=== PATIENT | female | born 1965 | race Asian ===

== ENCOUNTER 2017-01-21 09:59 | Outpatient (CLI) | payer OTHER ==
--- NOTE | 2017-01-22 18:45 | Mammography Report ---
DIGITAL SCREENING MAMMOGRAM: 01/21/2017 CLINICAL INDICATION: A 51-year-old nulliparous patient with history of benign cyst aspiration for sc reening. COMPARISON: 08/2014, 10/2011, 10/2007, 01/2007. TECHNIQUE: Routine CC and MLO projections were obtained of the breasts. FINDINGS: The breasts again demonstrate heterogeneous dense fibroglandular parenchyma bilaterally. There is a shifting pattern of circumscribed nodules bilaterally, compatible with waxing and waning c ysts. Coarse and punctate, typically benign calcifications are present. No suspicious masses, clust ered microcalcifications, or regions of architectural distortion are identified. IMPRESSION: BENIGN FINDINGS. RECOMMENDATION: Routine annual screening unless otherwise clinically indicated. BI-RADS category 2, benign findings. STANDARD QUALIFYING STATEMENTS 1. This examination was reviewed with the aid of Computer-Aided Detection (CAD). 2. A negative or benign imaging report should not delay biopsy if clinically suspicious findings are present. Consider surgical consultation if warranted. More than 5% of cancers are not identified by i maging. 3. Dense breasts may obscure an underlying neoplasm. JOB #: [id number] EXT JOB #:[id number]
== END 2017-01-21 10:00 | disposition home or self-care (01) ==
LOC: DI.N 09:59
PROVIDERS: ATTEND Physician Assistant Medical
DX: Z12.31 Encounter for screening mammogram for malignant neoplasm of breast (principal)
CPT/HCPCS: 77067

== ENCOUNTER 2017-02-11 10:37 | Outpatient (CLI) | payer OTHER ==
[2017-02-11 19:23] LABS: BASOPHILS % (AUTO) 0.8 %; EOSINOPHILS % (AUTO) 0.8 %; HCT - HEMATOCRIT 41.4 % (37.0-47.0); HGB - HEMOGLOBIN 14.1 g/dL (12.0-16.0); LYMPHOCYTES # (AUTO) 1.8 10^3/uL (1.5-3.5); LYMPHOCYTES % (AUTO) 33.6 %; MEAN CORPUSCULAR HEMOGLOBIN 30.3 pg (27.0-31.0); MEAN CORPUSCULAR VOLUME 89.3 fL (81.0-99.0); MEAN PLATELET VOLUME 7.6 fL (7.9-10.8); MONOCYTES # (AUTO) 0.3 10^3/uL (0.0-1.0); NEUTROPHILS # (AUTO) 3.3 10^3/uL (1.5-6.6); NEUTROPHILS % (AUTO) 59.8 %; NUCLEATED RED BLOOD CELLS AUTO 0.1 /100WBC; RED BLOOD COUNT 4.64 10^6/uL (4.20-5.40); RED CELL DISTRIBUTION WIDTH 13.3 % (12.0-15.0); UNCORRECTED WHITE BLOOD COUNT 5.4 x10^3/uL; WHITE BLOOD COUNT 5.4 x10^3/uL (4.8-10.8)
[2017-02-11 19:29] LABS: ALBUMIN/GLOBULIN RATIO 1.3 (1.0-2.2); BILIRUBIN,TOTAL 0.5 mg/dL (0.2-1.0); BUN - BLOOD UREA NITROGEN 11 mg/dL (6-20); CALCIUM 9.7 mg/dL (8.5-10.3); CARBON DIOXIDE - CO2 28 mmol/L (21-32); CHLORIDE 103 mmol/L (101-111); CHOL/HDL RATIO 3.2 (<4.4); CHOLESTEROL 244 mg/dL; CREATININE 0.6 mg/dL (0.4-1.0); GFR - MDRD 105 (>89); GLUCOSE 98 mg/dL (70-100); HDL CHOLESTEROL 76 mg/dL; LDL/HDL RATIO 1.9 (<4.4); POTASSIUM 3.6 mmol/L (3.5-5.0); SODIUM 140 mmol/L (135-145); TOTAL PROTEIN 8.7 g/dL (6.7-8.2); TRIGLYCERIDES 126 mg/dL; VLDL CHOLESTEROL 25 mg/dL
== END 2017-02-11 10:38 | disposition home or self-care (01) ==
LOC: LAB.WCP 10:37
PROVIDERS: ATTEND Physician Assistant Medical
DX: Z00.00 Encounter for general adult medical examination without abnormal findings (principal)
CPT/HCPCS: 36415; 80053; 80061; 84443; 85025

== ENCOUNTER → 2018-03-24 | Outpatient (CLI) | payer OTHER ==
[2018-03-24 14:19] LABS: EOSINOPHILS # (AUTO) 0.1 10^3/uL (0.0-0.7); EOSINOPHILS % (AUTO) 1.5 %; HGB - HEMOGLOBIN 13.9 g/dL (12.0-16.0); LYMPHOCYTES # (AUTO) 1.8 10^3/uL (1.5-3.5); LYMPHOCYTES % (AUTO) 40.7 %; MEAN CORPUSCULAR HEMOGLOBIN 30.1 pg (27.0-31.0); MEAN CORPUSCULAR VOLUME 88.5 fL (81.0-99.0); MEAN PLATELET VOLUME 7.4 fL (7.9-10.8); MONOCYTES # (AUTO) 0.3 10^3/uL (0.0-1.0); NEUTROPHILS # (AUTO) 2.2 10^3/uL (1.5-6.6); NEUTROPHILS % (AUTO) 50.8 %; PLT - PLATELET COUNT 375 10^3/uL (130-450); RED CELL DISTRIBUTION WIDTH 13.2 % (12.0-15.0); WHITE BLOOD COUNT 4.3 x10^3/uL (4.8-10.8)
[2018-03-24 14:40] LABS: ALBUMIN/GLOBULIN RATIO 1.3 (1.0-2.2); ALKALINE PHOSPHATASE 84 IU/L (42-121); ALT ALANINE AMINOTRANSFERASE 46 IU/L (10-60); AST ASPARTATE AMINOTRANSFERASE 37 IU/L (10-42); BILIRUBIN,TOTAL 0.8 mg/dL (0.2-1.0); BUN - BLOOD UREA NITROGEN 11 mg/dL (6-20); CALCIUM 9.4 mg/dL (8.5-10.3); CARBON DIOXIDE - CO2 27 mmol/L (21-32); CHLORIDE 99 mmol/L (101-111); CHOL/HDL RATIO 2.8 (<4.4); CHOLESTEROL 248 mg/dL; CREATININE 0.6 mg/dL (0.4-1.0); GFR - MDRD 104 (>89); GLUCOSE 97 mg/dL (70-100); HDL CHOLESTEROL 89 mg/dL; LDL CHOLESTEROL,CALCULATED 139 mg/dL; LDL/HDL RATIO 1.6 (<4.4); SODIUM 138 mmol/L (135-145); TOTAL PROTEIN 8.8 g/dL (6.7-8.2); VLDL CHOLESTEROL 20 mg/dL
[2018-03-25 14:06] LABS: HEPATITIS C ANTIBODY NON-REACTIVE (NON-REACTIVE)
== END ==
LOC: LAB.WCP 10:19
PROVIDERS: ATTEND Physician Assistant Medical
DX: Z00.00 Encounter for general adult medical examination without abnormal findings (principal); Z11.59 Encounter for screening for other viral diseases
CPT/HCPCS: 36415; 80053; 80061; 83721; 84443; 85025; 86803

== ENCOUNTER → 2020-03-14 | Outpatient (CLI) | payer OTHER ==
[2020-03-14 18:01] LABS: BASOPHILS % (AUTO) 0.8 %; EOSINOPHILS # (AUTO) 0.1 10^3/uL (0.0-0.7); EOSINOPHILS % (AUTO) 1.4 %; HGB - HEMOGLOBIN 13.3 g/dL (12.0-16.0); LYMPHOCYTES # (AUTO) 1.6 10^3/uL (1.5-3.5); MEAN CORPUSCULAR HEMOGLOBIN 29.2 pg (27.0-31.0); MEAN CORPUSCULAR HGB CONC 31.9 g/dL (32.0-36.0); MEAN CORPUSCULAR VOLUME 91.4 fL (81.0-99.0); MEAN PLATELET VOLUME 9.3 fL (7.9-10.8); MONOCYTES # (AUTO) 0.3 10^3/uL (0.0-1.0); MONOCYTES % (AUTO) 6.4 %; NEUTROPHILS # (AUTO) 3.2 10^3/uL (1.5-6.6); NEUTROPHILS % (AUTO) 61.2 %; PLT - PLATELET COUNT 372 10^3/uL (130-450); RED BLOOD COUNT 4.56 10^6/uL (4.20-5.40); RED CELL DISTRIBUTION WIDTH 13.1 % (12.0-15.0); WHITE BLOOD COUNT 5.2 x10^3/uL (4.8-10.8)
[2020-03-14 18:26] LABS: ALBUMIN 4.7 g/dL (3.2-5.5); ALBUMIN/GLOBULIN RATIO 1.2 (1.0-2.2); ALKALINE PHOSPHATASE 88 IU/L (42-121); ALT ALANINE AMINOTRANSFERASE 42 IU/L (10-60); AST ASPARTATE AMINOTRANSFERASE 28 IU/L (10-42); BILIRUBIN,TOTAL 0.5 mg/dL (0.2-1.0); BUN - BLOOD UREA NITROGEN 13 mg/dL (6-20); CALCIUM 9.5 mg/dL (8.5-10.3); CARBON DIOXIDE - CO2 26 mmol/L (21-32); CHLORIDE 104 mmol/L (101-111); CHOL/HDL RATIO 2.5 (<4.4); CHOLESTEROL 227 mg/dL; CREATININE 0.6 mg/dL (0.4-1.0); GLUCOSE 97 mg/dL (70-100); HDL CHOLESTEROL 91 mg/dL; LDL CHOLESTEROL,CALCULATED 120 mg/dL; LDL/HDL RATIO 1.3 (<4.4); SODIUM 140 mmol/L (135-145); TOTAL PROTEIN 8.6 g/dL (6.7-8.2); VLDL CHOLESTEROL 16 mg/dL
== END ==
LOC: LAB.WCP 12:24
PROVIDERS: ATTEND Physician Assistant Medical
DX: Z00.00 Encounter for general adult medical examination without abnormal findings (principal)
CPT/HCPCS: 36415; 80053; 80061; 83721; 84443; 85025

== ENCOUNTER 2020-12-04 12:01 | Day surgery (SDC) | payer OTHER ==
[2020-12-04] MEDS ORDERED: LACTATED RINGERS 1,000 ML IV ONE ×2 (12:48→13:58)
[2020-12-04] MEDS ORDERED: MIDAZOLAM 2 MG/2 ML VIAL ONE (13:31)
[2020-12-04] MEDS ORDERED: fentaNYL 250 MCG/5 ML VIAL ONE (13:31)
[2020-12-04 14:10] VITALS: BP 97/68
== END 2020-12-04 12:02 | disposition home or self-care (01) ==
LOC: SDS 12:01
PROVIDERS: ATTEND Surgery
DX: Z12.11 Encounter for screening for malignant neoplasm of colon (principal); K57.30 Diverticulosis of large intestine without perforation or abscess without bleeding; K64.8 Other hemorrhoids; K64.4 Residual hemorrhoidal skin tags
CPT/HCPCS: 45378; J3010; J7120

== ENCOUNTER 2021-10-07 08:26 | Outpatient (CLI) | payer OTHER ==
[2021-10-07 11:42] LABS: BASOPHILS # (AUTO) 0.1 10^3/uL (0.0-0.1); BASOPHILS % (AUTO) 0.9 %; EOSINOPHILS # (AUTO) 0.1 10^3/uL (0.0-0.7); EOSINOPHILS % (AUTO) 2.3 %; HCT - HEMATOCRIT 43.5 % (37.0-47.0); HGB - HEMOGLOBIN 14.1 g/dL (12.0-16.0); LYMPHOCYTES # (AUTO) 2.1 10^3/uL (1.5-3.5); MEAN CORPUSCULAR HEMOGLOBIN 29.3 pg (27.0-31.0); MEAN CORPUSCULAR HGB CONC 32.4 g/dL (32.0-36.0); MEAN CORPUSCULAR VOLUME 90.2 fL (81.0-99.0); MEAN PLATELET VOLUME 9.2 fL (7.9-10.8); MONOCYTES # (AUTO) 0.3 10^3/uL (0.0-1.0); MONOCYTES % (AUTO) 5.9 %; NEUTROPHILS # (AUTO) 2.7 10^3/uL (1.5-6.6); NEUTROPHILS % (AUTO) 50.7 %; PLT - PLATELET COUNT 393 10^3/uL (130-450); RED BLOOD COUNT 4.82 10^6/uL (4.20-5.40); RED CELL DISTRIBUTION WIDTH 13.3 % (12.0-15.0); WHITE BLOOD COUNT 5.3 x10^3/uL (4.8-10.8)
[2021-10-07 12:05] LABS: ALBUMIN 4.6 g/dL (3.2-5.5); ALBUMIN/GLOBULIN RATIO 1.2 (1.0-2.2); ALKALINE PHOSPHATASE 92 IU/L (42-121); ALT ALANINE AMINOTRANSFERASE 29 IU/L (10-60); AST ASPARTATE AMINOTRANSFERASE 26 IU/L (10-42); BILIRUBIN,TOTAL 0.7 mg/dL (0.2-1.0); BUN - BLOOD UREA NITROGEN 12 mg/dL (6-20); CALCIUM 9.5 mg/dL (8.5-10.3); CARBON DIOXIDE - CO2 28 mmol/L (21-32); CHLORIDE 102 mmol/L (101-111); CHOL/HDL RATIO 2.7 (<4.4); CHOLESTEROL 241 mg/dL; CREATININE 0.6 mg/dL (0.4-1.0); GFR - MDRD 103 (>89); GLUCOSE 107 mg/dL (70-100); HDL CHOLESTEROL 88 mg/dL; LDL CHOLESTEROL,CALCULATED 131 mg/dL; LDL/HDL RATIO 1.5 (<4.4); POTASSIUM 3.8 mmol/L (3.5-5.0); SODIUM 139 mmol/L (135-145); TOTAL PROTEIN 8.5 g/dL (6.7-8.2); TRIGLYCERIDES 110 mg/dL; VLDL CHOLESTEROL 22 mg/dL
[2021-10-07 12:15] LABS: THYROID STIMULATING HORMONE 1.65 uIU/mL (0.34-5.60)
== END 2021-10-07 08:27 | disposition home or self-care (01) ==
LOC: LAB.N 08:26
PROVIDERS: ATTEND Physician Assistant Medical
DX: Z00.00 Encounter for general adult medical examination without abnormal findings (principal)
CPT/HCPCS: 36415; 80053; 80061; 83721; 84443; 85025

== ENCOUNTER 2021-11-10 03:50 | Emergency (ER) | payer OTHER ==
--- NOTE | 2021-11-10 04:53 | ED Physician Documentation ---
PD HPI DYSPNEA - Stated complaint Stated Complaint: RAPID HEART - Chief complaint Chief Complaint: Cardiac - History obtained from History obtained from: Patient, Family () - History of Present Illness Timing - onset: How many hours ago (1), Today Timing - onset during: Sleep Timing - duration: Minutes (she was awakened with feeling of fast heart rate, and mild lightheaded. States the rate was fast/regular. It lasted about 30-45 seconds and then improved. Feels okay enroute here.) Timing - details: Abrupt onset Inciting event(s): No: Out of meds, URI Worsened by: No: Exertion Associated symptoms: Palpitations. No: Fever, Cough Similar symptoms before: Has not had sx before Recently seen: Not recently seen Review of Systems Constitutional: denies: Fever, Chills Nose: denies: Rhinorrhea / runny nose, Congestion Throat: denies: Sore throat Cardiac: reports: Palpitations. denies: Chest pain / pressure, Pedal edema, Calf pain Respiratory: denies: Dyspnea, Cough, Wheezing GI: denies: Abdominal Pain, Nausea, Vomiting, Diarrhea Musculoskeletal: denies: Extremity swelling Neurologic: denies: Generalized weakness, Focal weakness, Numbness, Near syncope, Syncope PD PAST MEDICAL HISTORY - Past Medical History Cardiovascular: None Respiratory: None Endocrine/Autoimmune: None GI: None : None HEENT: None Psych: None Musculoskeletal: Osteoarthritis, Chronic back pain Derm: None - Present Medications Home Medications: Ambulatory Orders Medication Instructions Recorded Confirmed Cyclobenzaprine [Flexeril] 10 mg PO DAILY 12/04/20 12/04/20 Maxalt 12/04/20 - Allergies Allergies/Adverse Reactions: Allergies Allergy/AdvReac Type Severity Reaction Status Date / Time aspirin AdvReac Hives Verified 11/10/21 04:06 pamabrom [From Midol] AdvReac Unknown Verified 11/10/21 04:06 shellfish derived AdvReac Hives Verified 11/10/21 04:06 PD ED PE NORMAL - Vitals Vital signs reviewed: Yes - General General: Alert and oriented X 3, No acute distress, Well developed/nourished - Neck Neck: Supple, no meningeal sign, No adenopathy - Cardiac Cardiac: RRR, No murmur - Respiratory Respiratory: Clear bilaterally - Abdomen Abdomen: Soft, Non tender - Derm Derm: Normal color, Warm and dry - Extremities Extremities: No deformity, No tenderness to palpate, Normal ROM s pain - Neuro Neuro: Alert and oriented X 3, fisher scallop 2-12 intact, No motor deficit Results - Vitals Vitals: Vital Signs - 24 hr 11/10/21 11/10/21 04:00 06:06 Temperature 36.8 C Heart Rate 80 76 Respiratory 18 19 Rate Blood Pressure 138/80 H 115/79 O2 Saturation 99 100 Oxygen O2 Source Room air - EKG (time done) 03:58 Rate: Rate (enter#) Rhythm: NSR [place]: Normal Intervals: Normal [place] QRS: Normal Ischemia: Normal ST segments. No: ST elevation c/w ischemia, ST depression - Rads (name of study) chest xray Radiology: Prelim report reviewed (no acute process), See rad report PD MEDICAL DECISION MAKING - ED course Complexity details: reviewed results (had had blood tests 10/07/21 routinely and had normal CBC, chemistry panel, TSH, so I did not see need for repeating this visit. ), considered differential (brief self-limited episode of what sounds like SVT or atrial fib. Single episode and not had it before.Consider Holter?Ziopatch if recurrent episdoes. ), d/w patient Departure - Departure Disposition: Home, Self Care Clinical Impression: Heart rate fast, Viral respiratory illness, COVID-19 Condition: Stable Record reviewed to determine appropriate education?: Yes Instructions: ED Tachycardia Pat PSVT Follow-Up: Mague Padgett PA-C [Primary Care Provider] - Comments: Your vital signs, EKG and chest x-ray are normal here. Unclear the exact type or cause of your fast heart rate episode earlier at home. Consideration would be for a brief episode of atrial fibrillation or PSVT versus just a fast heart rate appropriately in response to illness. Stay well-hydrated. Continue simple medications such as Tylenol or ibuprofen fo r fevers or pains. Follow-up with your primary care if you have recurrent episodes several times or ones that persists. If you have further episodes, consideration would be for your primary care setting up heart monitor that you wear for 3 to 7 days to better evaluate the occurrences. Return to the ER if you have an episode that persists or any other symptoms develop that are concerning. Discharge Date/Time: 11/10/21 06:23
[2021-11-10 06:21] VITALS: BP 115/79
--- NOTE | 2021-11-10 07:52 | XRAY Report ---
PROCEDURE: Chest 1 View X-Ray INDICATIONS: chest pain TECHNIQUE: One view of the chest was acquired. COMPARISON: None FINDINGS: Surgical changes and devices: None. Lungs and pleura: No pleural effusions or pneumothorax. Trace left basilar atelectasis. Otherwise th e lungs and pleural spaces are clear.. Mediastinum: Mediastinal contours appear normal. Heart size is normal. Bones and chest wall: No suspicious bony lesions. Overlying soft tissues appear unremarkable. IMPRESSION: Trace left basilar atelectasis. No focal infiltrate. Note: Final report is concordant with preliminary report provided by [employer] Reviewed by: Kris Carrera MD on 11/10/2021 6:50 AM OLIMP[facility] Approved by: Kris Carrera MD on 11/10/2021 6:50 AM [facility] Station ID: [id number]
== END 2021-11-10 06:23 | disposition home or self-care (01) ==
LOC: ED 03:50
DX: U07.1 COVID-19 (principal); J06.9 Acute upper respiratory infection, unspecified
CPT/HCPCS: 93005; 99283; 99284

== ENCOUNTER 2021-11-13 12:19 | Emergency (ER) | payer OTHER ==
[2021-11-13 12:41] VITALS: BP 151/93
[2021-11-13 13:36] LABS: BASOPHILS % (AUTO) 0.4 %; HCT - HEMATOCRIT 44.4 % (37.0-47.0); HGB - HEMOGLOBIN 14.4 g/dL (12.0-16.0); LYMPHOCYTES % (AUTO) 27.5 %; MEAN CORPUSCULAR HEMOGLOBIN 29.1 pg (27.0-31.0); MEAN CORPUSCULAR HGB CONC 32.4 g/dL (32.0-36.0); MEAN CORPUSCULAR VOLUME 89.9 fL (81.0-99.0); MEAN PLATELET VOLUME 8.7 fL (7.9-10.8); MONOCYTES # (AUTO) 0.4 10^3/uL (0.0-1.0); MONOCYTES % (AUTO) 5.1 %; NEUTROPHILS # (AUTO) 4.9 10^3/uL (1.5-6.6); NEUTROPHILS % (AUTO) 66.6 %; PLT - PLATELET COUNT 387 10^3/uL (130-450); RED BLOOD COUNT 4.94 10^6/uL (4.20-5.40); RED CELL DISTRIBUTION WIDTH 13.1 % (12.0-15.0); WHITE BLOOD COUNT 7.3 x10^3/uL (4.8-10.8)
--- NOTE | 2021-11-13 13:42 | ED Physician Documentation ---
PD HPI NVD - Stated complaint Stated Complaint: C+,WEAK,DIARRHEA - Chief complaint Chief Complaint: General - History obtained from History obtained from: Patient - History of Present Illness Timing - onset: How many days ago (5) Timing - duration: Days (5) Timing - details: Abrupt onset (felt ill with some cough, congestion, but mostly nausea, less appetite, some diarrhea and feeling weak/tired. Feels dehydrated.), Still present Associated symptoms: Fever, Loss of appetite. No: Abdominal pain, Near syncope / syncope, Dysuria Contributing factors: Sick contact. No: Bad food, Travel Improved by: No: Eating, Vomiting Worsened by: Eating, Position, Palpation Similar symptoms before: Has not had sx before Recently seen: Not recently seen Review of Systems Constitutional: reports: Chills, Myalgias, Fatigue Nose: reports: Congestion. denies: Rhinorrhea / runny nose Throat: denies: Sore throat Cardiac: denies: Chest pain / pressure, Palpitations, Calf pain Respiratory: reports: Dyspnea, Cough. denies: Wheezing GI: reports: Nausea, Vomiting, Diarrhea. denies: Abdominal Pain, Constipation Musculoskeletal: denies: Neck pain, Back pain Neurologic: reports: Generalized weakness. denies: Focal weakness, Numbness, Confused, Headache PD PAST MEDICAL HISTORY - Past Medical History Cardiovascular: None Respiratory: None Endocrine/Autoimmune: None GI: None : None HEENT: None Psych: None Musculoskeletal: Osteoarthritis, Chronic back pain Derm: None - Present Medications Home Medications: Ambulatory Orders Medication Instructions Recorded Confirmed Cyclobenzaprine [Flexeril] 10 mg PO DAILY 12/04/20 12/04/20 Maxalt 12/04/20 - Allergies Allergies/Adverse Reactions: Allergies Allergy/AdvReac Type Severity Reaction Status Date / Time aspirin AdvReac Hives Verified 11/13/21 12:41 pamabrom [From Midol] AdvReac Unknown Verified 11/13/21 12:41 shellfish derived AdvReac Hives Verified 11/13/21 12:41 PD ED PE NORMAL - Vitals Vital signs reviewed: Yes - General General: Alert and oriented X 3, No acute distress, Well developed/nourished - HEENT HEENT: Pharynx benign. No: Moist mucous membranes - Neck Neck: Supple, no meningeal sign, No adenopathy - Cardiac Cardiac: RRR, No murmur - Respiratory Respiratory: Clear bilaterally - Abdomen Abdomen: Soft, Non tender - Derm Derm: Normal color, Warm and dry, No rash Results - Vitals Vitals: Oxygen O2 Source Room air - Labs Labs: Laboratory Tests 11/13/21 11/13/21 13:28 13:28 WBC 7.3 RBC 4.94 Hgb 14.4 Hct 44.4 MCV 89.9 MCH 29.1 MCHC 32.4 RDW 13.1 Plt Count 387 MPV 8.7 Neut # (Auto) 4.9 Lymph # (Auto) 2.0 [place]th[place]omew # (Auto) 0.4 Eos # (Auto) 0.0 Baso # (Auto) 0.0 Absolute Nucleated RBC 0.00 Nucleated RBC % 0.0 Sodium 141 Potassium 3.8 Chloride 101 Carbon Dioxide 28 Anion Gap 12.0 BUN 8 Creatinine 0.8 Estimated GFR (MDRD) 74 L Glucose 102 H Calcium 9.8 Total Bilirubin 0.4 AST 19 ALT 27 Alkaline Phosphatase 83 Total Protein 9.1 H Albumin 4.9 Globulin 4.2 Albumin/Globulin Ratio 1.2 Lipase 36 PD MEDICAL DECISION MAKING - ED course Complexity details: re-evaluated patient (feeling improved. ), considered d ifferential (has COVID and is nauseated with less intake, Feeling weak. Presume some dehydrated and can give fluids and antiemetic. ), d/w patient Departure - Departure Disposition: 01 Home, Self Care Clinical Impression: Nausea, Dehydration, COVID-19 Condition: Stable Record reviewed to determine appropriate education?: Yes Follow-Up: Mague Padgett PA-C [Primary Care Provider] - Comments: Small frequent fluids. Use the previous prescription ondansetron/Zofran if needed for nausea. Recheck if not improved well over the next couple of days. Discharge Date/Time: 11/13/21 17:27
[2021-11-13 13:49] LABS: ALBUMIN 4.9 g/dL (3.2-5.5); ALBUMIN/GLOBULIN RATIO 1.2 (1.0-2.2); BILIRUBIN,TOTAL 0.4 mg/dL (0.2-1.0); CALCIUM 9.8 mg/dL (8.5-10.3); CREATININE 0.8 mg/dL (0.4-1.0); POTASSIUM 3.8 mmol/L (3.5-5.0); TOTAL PROTEIN 9.1 g/dL (6.7-8.2)
[2021-11-13] MEDS ORDERED: SODIUM CHLORIDE 0.9% 1,000 ML IV STA (14:10)
[2021-11-13] MEDS ORDERED: KETOROLAC 15 MG/ML VIAL IVP STA (14:10)
[2021-11-13] MEDS ORDERED: DROPERIDOL 5 MG/2 ML VIAL IVP STA (14:10)
== END 2021-11-13 17:27 | disposition home or self-care (01) ==
LOC: ED 12:19
DX: U07.1 COVID-19 (principal); E86.0 Dehydration; R11.0 Nausea
CPT/HCPCS: 36415; 80053; 83690; 85025; 96361; 96374; 99282

== ENCOUNTER 2022-07-05 21:51 | Emergency (ER) | payer OTHER ==
[2022-07-05 22:04] VITALS: BP 172/90
--- NOTE | 2022-07-05 22:07 | ED Physician Documentation ---
PD HPI CHEST PAIN - Stated complaint Stated Complaint: BP/FAST HEART RATE - Chief complaint Chief Complaint: Cardiac - History obtained from History obtained from: Patient - History of Present Illness Timing - onset: Today (onset this morning about 3 am of awaking with feeling of heart rate faster. Checked pulse and it was under 100. Took bp and it was elevated at 170s systolic. She continued to check BP through the day and remained similarly high. She states prior bps have been borderline hTN for 4-6 months.) Timing - onset during: Rest Timing - details: Gradual onset, Still present (no chest pain nor dyspnea but has had bp remain elevated through the day.) Quality: No: Pressure, Tightness Radiation: No: Jaw, Neck Improved by: No: Rest Worsened by: No: Exertion Associated symptoms: Shortness of air. No: Nausea, Feeling faint / dizzy, Palpitations, Cough Similar symptoms before: No diagnosis Recently seen: Not recently seen Review of Systems Constitutional: denies: Fever, Chills Nose: denies: Rhinorrhea / runny nose, Congestion Throat: denies: Sore throat Cardiac: denies: Chest pain / pressure, Palpitations Respiratory: denies: Dyspnea, Cough GI: denies: Abdominal Pain, Vomiting, Diarrhea, Bloody / black stool Neurologic: denies: Generalized weakness, Near syncope, Altered mental status PD PAST MEDICAL HISTORY - Past Medical History Cardiovascular: None Respiratory: None Endocrine/Autoimmune: None GI: None : None HEENT: None Psych: None Musculoskeletal: Osteoarthritis, Chronic back pain Derm: None - Present Medications Home Medications: Ambulatory Orders Medication Instructions Recorded Confirmed Cyclobenzaprine [Flexeril] 10 mg PO DAILY 12/04/20 07/05/22 Maxalt 12/04/20 Losartan [Cozaar] 50 mg PO DAILY 30 Days #30 tablet 07/05/22 - Allergies Allergies/Adverse Reactions: Allergies Allergy/AdvReac Type Severity Reaction Status Date / Time aspirin AdvReac Hives Verified 11/13/21 12:41 pamabrom [From Midol] AdvReac Unknown Verified 11/13/21 12:41 shellfish derived AdvReac Hives Verified 11/13/21 12:41 PD ED PE NORMAL - Vitals Vital signs reviewed: Yes - General General: Alert and oriented X 3, No acute distress, Well developed/nourished - Neck Neck: Supple, no meningeal sign, No adenopathy - Cardiac Cardiac: RRR, No murmur - Respiratory Respiratory: Clear bilaterally - Abdomen Abdomen: Soft, Non tender - Derm Derm: Normal color, Warm and dry - Extremities Extremities: No deformity, No tenderness to palpate, No edema, No calf tenderness / cord - Neuro Neuro: Alert and oriented X 3, No motor deficit, Normal speech Results - Vitals Vitals: Vital Signs - 24 hr 07/05/22 07/05/22 22:00 22:30 Temperature 36.8 C Heart Rate 102 H 86 Respiratory 19 21 Rate Blood Pressure 172/90 H O2 Saturation 100 99 Oxygen O2 Source Room air - EKG (time done) 10:24 Rate: Rate (enter#) (87) Rhythm: NSR [place]: Normal Intervals: Normal [place] QRS: Normal Ischemia: Normal ST segments. No: ST elevation c/w ischemia, ST depression - Labs Labs: Laboratory Tests 07/05/22 07/05/22 07/05/22 22:24 22:24 22:24 WBC 7.2 RBC 4.73 Hgb 13.5 Hct 42.0 MCV 88.8 MCH 28.5 MCHC 32.1 RDW 13.2 Plt Count 390 MPV 8.7 Neut # (Auto) 4.5 Lymph # (Auto) 2.0 [place] # (Auto) 0.6 Eos # (Auto) 0.1 Baso # (Auto) 0.0 Absolute Nucleated RBC 0.00 Nucleated RBC % 0.0 Sodium 138 Potassium 3.5 Chloride 102 Carbon Dioxide 24 Anion Gap 12.0 BUN 13 Creatinine 0.5 Estimated GFR (MDRD) 127 Glucose 123 H Calcium 9.8 Magnesium 2.3 Total Bilirubin 0.7 AST 25 ALT 36 Alkaline Phosphatase 80 Total Protein 8.6 H Albumin 4.5 Globulin 4.1 Albumin/Globulin Ratio 1.1 Lipase 71 H TSH 2.14 PD Medical Decision Making - ED course Complexity details: considered differential, d/w patient Reviewed Lab Results: ECG without ischemic changes. She deoes not describe exertional CP nor dyspne. No signs of CHF/fluid overload. Checked basic labs to ensure normal renal function and no electolyte problems. BP elevation today is not of concern per se, but she describes a trend over months of borderline HTN readings. So is reasonable to start low dose daily bp meds at this opportunity. Departure - Departure Disposition: Home, Self Care Clinical Impression: Elevated blood pressure reading Condition: Stable Record reviewed to determine appropriate education?: Yes Instructions: ED Hypertension New Begin Tx Prescriptions: Losartan [Cozaar] 50 mg PO DAILY 30 Days #30 tablet Comments: Your blood pressure is elevated today but not to the degree that we would think is an emergency. As such we typically do not try to make it come down quickly, but more so see it as an indication to start a blood pressure medicine if it is elevated regularly. Since you describe your blood pressure having been elevated more commonly in the last month or 2 then it could be reasonable to start a basic dose blood pressure medicine. Losartan 50 mg daily for the next month. Check your blood pressure daily or every other day and record the readings. Contact your primary care office after a week or two, and see if they wish to continue the blood pressure medicine or change it/the dose. I sent your script to [facility]. Your EKG and basic blood tests are essentially normal with your potassium being at the low end of normal. You may want to just have some higher potassium foods but otherwise not needing a supplement per se. Discharge Date/Time: 07/05/22 23:25
[2022-07-05 22:33] LABS: BASOPHILS % (AUTO) 0.4 %; EOSINOPHILS # (AUTO) 0.1 10^3/uL (0.0-0.7); EOSINOPHILS % (AUTO) 0.8 %; HGB - HEMOGLOBIN 13.5 g/dL (12.0-16.0); LYMPHOCYTES % (AUTO) 28.2 %; MEAN CORPUSCULAR HEMOGLOBIN 28.5 pg (27.0-31.0); MEAN CORPUSCULAR HGB CONC 32.1 g/dL (32.0-36.0); MEAN CORPUSCULAR VOLUME 88.8 fL (81.0-99.0); MEAN PLATELET VOLUME 8.7 fL (7.9-10.8); MONOCYTES # (AUTO) 0.6 10^3/uL (0.0-1.0); MONOCYTES % (AUTO) 7.7 %; NEUTROPHILS # (AUTO) 4.5 10^3/uL (1.5-6.6); NEUTROPHILS % (AUTO) 62.8 %; PLT - PLATELET COUNT 390 10^3/uL (130-450); RED BLOOD COUNT 4.73 10^6/uL (4.20-5.40); RED CELL DISTRIBUTION WIDTH 13.2 % (12.0-15.0); WHITE BLOOD COUNT 7.2 x10^3/uL (4.8-10.8)
[2022-07-05] MEDS ORDERED: LOSARTAN 50 MG TABLET PO STA (22:33)
[2022-07-05 22:49] LABS: ALBUMIN 4.5 g/dL (3.2-5.5); ALBUMIN/GLOBULIN RATIO 1.1 (1.0-2.2); BILIRUBIN,TOTAL 0.7 mg/dL (0.2-1.0); CALCIUM 9.8 mg/dL (8.5-10.3); CREATININE 0.5 mg/dL (0.4-1.0); MAGNESIUM 2.3 mg/dL (1.7-2.8); POTASSIUM 3.5 mmol/L (3.5-5.0); TOTAL PROTEIN 8.6 g/dL (6.7-8.2)
[2022-07-05] MEDS ORDERED: POTASSIUM CHLORIDE 20 MEQ TABLET PO STA (22:54)
== END 2022-07-05 23:25 | disposition home or self-care (01) ==
LOC: ED 21:51
DX: R03.0 Elevated blood-pressure reading, without diagnosis of hypertension (principal); E87.6 Hypokalemia
CPT/HCPCS: 36415; 80053; 83690; 83735; 84443; 85025; 93005; 99284; A9270

== ENCOUNTER 2022-08-06 09:16 | Outpatient (CLI) | payer OTHER | END 2022-08-06 09:17 | disposition home or self-care (01) | LOC: LAB.N 09:16 | PROVIDERS: ATTEND Physician Assistant Medical | DX: G25.81 Restless legs syndrome (principal) | CPT/HCPCS: 36415; 82607 ==

== ENCOUNTER 2022-10-15 09:36 | Outpatient (CLI) | payer OTHER ==
--- NOTE | 2022-10-16 09:53 | Mammography Report ---
BILATERAL DIGITAL SCREENING MAMMOGRAM 3D/2D: 10/15/2022 CLINICAL: Routine screening. Comparison is made to exams dated: 01/21/2017 mammogram, 08/28/2014 mammogram, and 11/17/2011 mammogram - [facility]. Both breasts are heterogeneously dense, which may obscure small masses (category c / 51-75% glandular tissue). There is a new 0.7 cm oval high density focal asymmetry with possible rim calcifications in the right breast at 10 o'clock posterior depth. Associated central punctate calcifications also seen. No other significant masses, calcifications, or other findings are seen in either breast. IMPRESSION: INCOMPLETE: NEEDS ADDITIONAL IMAGING EVALUATION The new 0.7 cm oval high density focal asymmetry with central punctate calcifications in the right br east is consistent with fat necrosis or an oil cyst and is indeterminate. Diagnostic mammogram for additional views to include mediolateral and spot magnification views with possible ultrasound is re commended. Based on the Tyrer Cuzick model (a risk assessment model) the patients lifetime risk is 13.6% and he r 10 year risk is 5.3%. According to the ACR, ACS, and NCCN guidelines, an annual breast MRI exam tianna ng with mammogram is recommended if the patients lifetime risk is 20% or greater. This exam was interpreted at Station ID: [id number]. NOTE: For mammograms, a report in lay terms will be sent to the patient. Approximately 15% of breast malignancies will not be visualized mammographically. In the management of a palpable breast mass, a negative mammogram must not discourage biopsy of a clinically suspicious lesion. Electronically Signed By: Mukesh Montilla M.D. aty/:10/15/2022 10:20:23 ACR BI-RADS Category 0: Incomplete 3340F PARENCHYMAL PATTERN: (D) - The breast(s) demonstrate(s) heterogeneously dense fibroglandular parenchy ma. BI-RADS CATEGORY: (0) - 0 Mammo and [place] [id number] Immediate follow-up LATERALITY: (R)
== END 2022-10-15 09:37 | disposition home or self-care (01) ==
LOC: DI.N 09:36
DX: Z12.31 Encounter for screening mammogram for malignant neoplasm of breast (principal); R92.8 Other abnormal and inconclusive findings on diagnostic imaging of breast; R92.1 Mammographic calcification found on diagnostic imaging of breast

== ENCOUNTER 2022-10-15 09:57 | Outpatient (CLI) | payer OTHER ==
[2022-10-15 12:05] LABS: BASOPHILS # (AUTO) 0.1 10^3/uL (0.0-0.1); BASOPHILS % (AUTO) 1.2 %; EOSINOPHILS # (AUTO) 0.1 10^3/uL (0.0-0.7); EOSINOPHILS % (AUTO) 1.8 %; HCT - HEMATOCRIT 42.1 % (37.0-47.0); HGB - HEMOGLOBIN 13.4 g/dL (12.0-16.0); LYMPHOCYTES # (AUTO) 1.6 10^3/uL (1.5-3.5); MEAN CORPUSCULAR HEMOGLOBIN 28.7 pg (27.0-31.0); MEAN CORPUSCULAR HGB CONC 31.8 g/dL (32.0-36.0); MEAN CORPUSCULAR VOLUME 90.1 fL (81.0-99.0); MEAN PLATELET VOLUME 9.1 fL (7.9-10.8); MONOCYTES # (AUTO) 0.3 10^3/uL (0.0-1.0); MONOCYTES % (AUTO) 6.5 %; NEUTROPHILS # (AUTO) 2.3 10^3/uL (1.5-6.6); NEUTROPHILS % (AUTO) 53.3 %; PLT - PLATELET COUNT 372 10^3/uL (130-450); RED BLOOD COUNT 4.67 10^6/uL (4.20-5.40); RED CELL DISTRIBUTION WIDTH 13.2 % (12.0-15.0); WHITE BLOOD COUNT 4.3 x10^3/uL (4.8-10.8)
[2022-10-15 12:11] LABS: ALBUMIN 4.5 g/dL (3.2-5.5); ALBUMIN/GLOBULIN RATIO 1.1 (1.0-2.2); ALKALINE PHOSPHATASE 92 IU/L (42-121); ALT ALANINE AMINOTRANSFERASE 45 IU/L (10-60); AST ASPARTATE AMINOTRANSFERASE 31 IU/L (10-42); BILIRUBIN,TOTAL 0.7 mg/dL (0.2-1.0); BUN - BLOOD UREA NITROGEN 14 mg/dL (6-20); CALCIUM 9.3 mg/dL (8.5-10.3); CARBON DIOXIDE - CO2 30 mmol/L (21-32); CHLORIDE 107 mmol/L (101-111); CHOLESTEROL 232 mg/dL; CREATININE 0.6 mg/dL (0.4-1.0); GFR - MDRD 102 (>89); GLUCOSE 110 mg/dL (70-100); HDL CHOLESTEROL 77 mg/dL; LDL CHOLESTEROL,CALCULATED 139 mg/dL; LDL/HDL RATIO 1.8 (<4.4); POTASSIUM 3.8 mmol/L (3.5-5.0); SODIUM 141 mmol/L (135-145); TOTAL PROTEIN 8.7 g/dL (6.7-8.2); TRIGLYCERIDES 82 mg/dL; VLDL CHOLESTEROL 16 mg/dL
[2022-10-15 12:19] LABS: THYROID STIMULATING HORMONE 1.08 uIU/mL (0.34-5.60)
== END 2022-10-15 09:58 | disposition home or self-care (01) ==
LOC: LAB.N 09:57
PROVIDERS: ATTEND Physician Assistant Medical
DX: Z00.00 Encounter for general adult medical examination without abnormal findings (principal)
CPT/HCPCS: 36415; 80053; 80061; 83721; 84443; 85025

== ENCOUNTER 2022-11-04 12:56 | Outpatient (CLI) | payer OTHER ==
--- NOTE | 2022-11-05 09:59 | Mammography Report ---
UNILATERAL RIGHT DIGITAL DIAGNOSTIC MAMMOGRAM 3D/2D WITH SPOT COMPRESSION: 11/04/2022 CLINICAL: Patient returns today to evaluate a focal asymmetry in the right breast. Comparison is made to exams dated: 10/15/2022 mammogram, 01/21/2017 mammogram, 08/28/2014 mammogram, and 11/17/2011 mammogram - [facility]. The right breast is heterogeneously dense, which may obscure small masses (category c / 51-75% glandu lar tissue). There is a 9 mm oval high density mass with a spiculated and indistinct margin in the right breast at 9 o'clock middle depth. This is seen in additional views. This was present previously, but obscure d by a large, since resolved cyst. It is similar size compared to 2017. No other significant masses or calcifications are seen in the breast. IMPRESSION: INCOMPLETE: NEEDS ADDITIONAL IMAGING EVALUATION The 9 mm oval high density mass in the right breast most likely is fat necrosis, a fibroadenoma, or a n oil cyst but remains indeterminate. An ultrasound is recommended. This was performed immediately following this exam. Based on the Tyrer Cuzick model (a risk assessment model) the patients lifetime risk is 13.6% and he r 10 year risk is 5.3%. According to the ACR, ACS, and NCCN guidelines, an annual breast MRI exam tianna ng with mammogram is recommended if the patients lifetime risk is 20% or greater. This exam was interpreted at Station ID: [id number]. NOTE: For mammograms, a report in lay terms will be sent to the patient. Approximately 15% of breast malignancies will not be visualized mammographically. In the management of a palpable breast mass, a negative mammogram must not discourage biopsy of a clinically suspicious lesion. Electronically Signed By: Hawa olivarez/:11/04/2022 13:58:16 ACR BI-RADS Category 0: Incomplete 3340F PARENCHYMAL PATTERN: (D) - The breast(s) demonstrate(s) heterogeneously dense fibroglandular parenchy ma. BI-RADS CATEGORY: (0) - 0 Ultrasound [id number] Immediate follow-up LATERALITY: (B)
--- NOTE | 2022-11-05 09:59 | Ultrasound Report ---
LIMITED ULTRASOUND OF RIGHT BREAST AND AXILLA: 11/04/2022 CLINICAL: Patient returns today to evaluate a focal asymmetry in the right breast. Comparison is made to exams dated: 11/04/2022 mammogram and 10/15/2022 mammogram - [facility]. Color flow and real-time ultrasound of the right breast 8-10 o'clock region were performed. Garcia sca le images of the real-time examination were reviewed. There is a 0.8 cm x 0.7 cm x 0.7 cm oval mass with an indistinct, circumscribed, and angular margin i n the right breast at 9 o'clock middle depth 4 cm from the nipple. This oval mass is hypoechoic with an echogenic boundary and posterior acoustic shadowing. This correlates with mammography findings. There are calcifications within the mass. Color flow imaging demonstrates that there is no vascular ity present. There also is a 1 cm x 0.6 cm x 0.5 cm oval mass with a circumscribed margin in the right breast at 9 o'clock middle depth 4 cm from the nipple with the long axis parallel to the skin. This oval mass d isplays posterior acoustic enhancement. Color flow imaging demonstrates that there is no vascularity present. Additionally, there is a 1.0 cm simple oval cyst, and a 0.8 cm minimally complicated oval cyst immedi ately adjacent to the first lesion. No suspicious lymph nodes in the axilla. IMPRESSION: SUSPICIOUS OF MALIGNANCY The 0.8 cm x 0.7 cm x 0.7 cm oval mass in the right breast at 9 o'clock middle depth is at a low susp icion for malignancy. An ultrasound guided biopsy is recommended. The 1 cm x 0.6 cm x 0.5 cm oval mass in the right breast at 9 o'clock middle depth most likely is a f ibroadenoma and is probably benign. Other cysts are benign, and probably benign. 6 month follow up u ltrasound is recommended. Findings and recommendations were discussed with the patient in person by Dr. Grant at time of exam. This exam was interpreted at Station ID: [id number]. Electronically Signed By: Hawa olivarez/:11/04/2022 14:16:10 Ultrasound BI-RADS: 4a Low suspicion for malignancy BI-RADS CATEGORY: (4a) - Low Susp Biopsy [id number] Immediate follow-up LATERALITY: (R)
== END 2022-11-04 12:57 | disposition home or self-care (01) ==
LOC: DI 12:56
PROVIDERS: ATTEND Physician Assistant Medical
DX: N63.15 Unspecified lump in the right breast, overlapping quadrants (principal); N60.11 Diffuse cystic mastopathy of right breast

== ENCOUNTER 2022-11-19 09:28 | Outpatient (CLI) | payer OTHER ==
[2022-11-19] MEDS ORDERED: LIDOCAINE 1%-EPI 1:100000 20 ML MDV ONE (09:52)
[2022-11-19] MEDS ORDERED: LIDOCAINE-MPF 1% 5 ML VIAL ONE (09:53)
[2022-11-19] MEDS ORDERED: LIDOCAINE-MPF 1% 5 ML VIAL TD ONE (11:57)
[2022-11-19] MEDS ORDERED: LIDOCAINE 1%-EPI 1:100000 20 ML MDV SUBQ ONE (11:59)
--- NOTE | 2022-11-20 09:26 | Mammography Report ---
UNILATERAL RIGHT DIGITAL DIAGNOSTIC MAMMOGRAM POST-PROCEDURE IMAGING FOR MARKER PLACEMENT: 11/19/2022 CLINICAL: Post right breast ultrasound biopsy clip placement imaging. Comparison is made to exams dated: 11/04/2022 mammogram, 10/15/2022 mammogram, 01/21/2017 mammogram, 08/28/2014 mammogram, 11/04/2022 ultrasound, and 11/19/2022 ultrasound biopsy - [facility]. The right breast is heterogeneously dense, which may obscure small masses (category c / 51-75% glandu lar tissue). There is a coil marker clip in the appropriate position in the right breast at 9 o'clock middle depth at the biopsy site. IMPRESSION: POST PROCEDURE MAMMOGRAM FOR MARKER PLACEMENT There was a successful coil marker clip placement in the right breast middle depth at the biopsy site . This exam was interpreted at Station ID: [id number]. Electronically Signed By: Willian Chavez M.D. slc/:11/19/2022 14:04:36 ACR BI-RADS Category Post-procedure mammogram for marker placement PARENCHYMAL PATTERN: (D) - The breast(s) demonstrate(s) heterogeneously dense fibroglandular parenchy ma. BI-RADS CATEGORY: () - Unspecified - other recall n/a LATERALITY: (B)
--- NOTE | 2022-11-21 13:42 | Ultrasound Report ---
ULTRASOUND GUIDED BIOPSY RIGHT BREAST USING VACUUM DEVICE WITH MARKING DEVICE INSERTED AND POST DIGIT AL MAMMOGRAPHIC IMAGIN11/19/2022 CLINICAL: Right breast mass. PATIENT CONSENT: Risks (minor bleeding, infection, vasovagal reaction and repeat procedure), benefits and alternatives were explained to the patient and written informed consent was obtained. Correlation is made to exams dated: 11/04/2022 ultrasound, 11/04/2022 mammogram, 10/15/2022 mammogram, and 11/19/2022 mammogram - [facility]. An ultrasound guided biopsy using real-time ultrasound was performed for the 0.7 cm x 0.6 cm x 0.6 cm circumscribed round mass located in the right breast at 9 o'clock middle depth 4 cm from the nipple. This was described on the previous ultrasound report. The skin was prepped in the usual manner. L ocal anesthetic was administered to the access site. A skin vincent was made in the breast. The abnorm ality was approached from the lateral aspect. A biopsy needle was placed adjacent to the abnormality under ultrasound guidance. Once the needle was documented to be in the correct location, four speci mens were obtained using the Mammotome biopsy system. A coil clip was inserted into the biopsy cavit y. A skin adhesive and a sterile dressing were applied to the access site. Post procedure digital m ammographic imaging demonstrates the location device at the targeted area. The specimens were sent t o the laboratory for pathological analysis. IMPRESSION: ULTRASOUND GUIDED BIOPSY BENIGN Ultrasound guided biopsy of the 0.7 cm x 0.6 cm x 0.6 cm mass in the right breast at 9 o'clock middle depth 4 cm from the nipple was successful with no apparent post procedure complications. Pathology indicates benign fibroadenoma (FA). Pathology results are concordant with imaging findings. A follow-up right ultrasound in 6 months is recommended to demonstrate stability of other cystic lesi ons. Future imaging is recommended as follows: 05/21/2023 follow-up right ultrasound. Results and recommendations will be communicated to the ordering provider's office. This exam was interpreted at Station ID: [id number]. Willian Brantley M.D. [facility] [place]/:11/21/2022 10:46:03 BI-RADS CATEGORY: () - Ultrasound [id number] 6 month follow-up LATERALITY: (R)
== END 2022-11-19 09:29 | disposition home or self-care (01) ==
LOC: DI 09:28
PROVIDERS: ATTEND Physician Assistant Medical
DX: N63.15 Unspecified lump in the right breast, overlapping quadrants (principal)
CPT/HCPCS: 19083

== ENCOUNTER 2022-12-31 14:46 | Outpatient (CLI) | payer OTHER ==
[2022-12-31 18:02] LABS: BASOPHILS % (AUTO) 0.7 %; EOSINOPHILS # (AUTO) 0.1 10^3/uL (0.0-0.7); EOSINOPHILS % (AUTO) 0.9 %; HCT - HEMATOCRIT 42.2 % (37.0-47.0); HGB - HEMOGLOBIN 13.5 g/dL (12.0-16.0); LYMPHOCYTES % (AUTO) 35.9 %; MEAN CORPUSCULAR HEMOGLOBIN 29.2 pg (27.0-31.0); MEAN CORPUSCULAR VOLUME 91.3 fL (81.0-99.0); MEAN PLATELET VOLUME 9.4 fL (7.9-10.8); MONOCYTES # (AUTO) 0.3 10^3/uL (0.0-1.0); MONOCYTES % (AUTO) 5.4 %; NEUTROPHILS # (AUTO) 3.2 10^3/uL (1.5-6.6); NEUTROPHILS % (AUTO) 56.9 %; PLT - PLATELET COUNT 342 10^3/uL (130-450); RED BLOOD COUNT 4.62 10^6/uL (4.20-5.40); RED CELL DISTRIBUTION WIDTH 13.4 % (12.0-15.0); WHITE BLOOD COUNT 5.7 x10^3/uL (4.8-10.8)
[2022-12-31 18:07] LABS: CALCIUM 9.8 mg/dL (8.5-10.3); CREATININE 0.7 mg/dL (0.6-1.3); MAGNESIUM 2.1 mg/dL (1.7-2.3); PHOSPHORUS 3.3 mg/dL (2.5-5.0); POTASSIUM 3.6 mmol/L (3.5-4.5)
== END 2022-12-31 14:47 | disposition home or self-care (01) ==
LOC: LAB.N 14:46
PROVIDERS: ATTEND Physician Assistant Medical
DX: R00.2 Palpitations (principal)
CPT/HCPCS: 36415; 80048; 83735; 84100; 85025

== ENCOUNTER 2023-01-07 14:40 | Outpatient (CLI) | payer OTHER ==
--- NOTE | 2023-01-08 17:52 | ED Physician Documentation ---
ED Addendum - Addendum Addendum: 01/08/23 17:51 Took call from , he tried calling the [facility] but was hung up on by a provider. States his has developed significant itching and redness around the site of her Holter monitor. Advised he could remove it and apply hydrocortisone cream available [id number] and call the [facility] tomorrow to see if there is a alternative adhesive. He voices understanding.
== END 2023-01-07 14:41 | disposition home or self-care (01) ==
LOC: MAC.MOP 14:40
PROVIDERS: ATTEND Physician Assistant Medical
DX: R00.2 Palpitations (principal)
CPT/HCPCS: 93246

== ENCOUNTER 2023-05-06 14:41 | Outpatient (CLI) | payer OTHER ==
--- NOTE | 2023-05-06 17:22 | XRAY Report ---
PROCEDURE: Foot 3 View LT INDICATIONS: LEFT FOOT PAIN TECHNIQUE: 3 views of the foot were acquired. COMPARISON: None. FINDINGS: Bones: No fractures or dislocations. No suspicious bony lesions. Soft tissues: No suspicious soft tissue calcifications or masses. IMPRESSION: No acute bony abnormality. Reviewed by: Dino Cannon MD on 05/06/2023 5:20 PM PST Approved by: Dino Cannon MD on 05/06/2023 5:[address] [facility] Station ID: [id number]
== END 2023-05-06 14:42 | disposition home or self-care (01) ==
LOC: DI.N 14:41
PROVIDERS: ATTEND Podiatrist
DX: M79.672 Pain in left foot (principal)

== ENCOUNTER 2023-06-17 10:32 | Outpatient (CLI) | payer OTHER ==
--- NOTE | 2023-06-18 09:25 | Ultrasound Report ---
LIMITED ULTRASOUND OF RIGHT BREAST: 06/17/2023 CLINICAL: Patient returns today to evaluate an asymmetry in the right breast. Comparison is made to exams dated: 11/19/2022 ultrasound biopsy, 11/19/2022 mammogram, 11/04/2022 ultra sound, 11/04/2022 mammogram, and 10/15/2022 mammogram - [facility]. Color flow and real-time ultrasound of the right breast 8-10 o'clock region were performed. Garcia sca le images of the real-time examination were reviewed. There is a stable benign 0.8 cm x 0.7 cm x 0.6 cm oval fibroadenoma with a circumscribed margin in th e right breast at 9 o'clock middle depth 4 cm from the nipple. This oval fibroadenoma is hypoechoic. This correlates with mammography findings and the previous biopsy. There are calcifications within the mass. There is an associated biopsy clip. Color flow imaging demonstrates that there is no vas cularity present. There also is a benign 0.6 cm x 0.5 cm x 0.4 cm oval cyst with debris in the right breast at 9 o'cloc k middle depth 4 cm from the nipple. This oval cyst with debris displays posterior acoustic enhancem ent. This abnormality is not significantly changed and was not seen on the prior mammogram. Color f low imaging demonstrates that there is no vascularity present. IMPRESSION: BENIGN There is no sonographic evidence of malignancy. The stable 0.8 cm biopsy proven fibroadenoma in the right breast at 9 o'clock middle depth is benign. The 0.6 cm oval cyst with debris or fibroadenoma in the right breast at 9 o'clock middle depth stable to decreased in size and is benign. A 1 year screening mammogram is recommended. Exam findings were conveyed to the patient. This exam was interpreted at Station ID: [id number]. Electronically Signed By: Willian Chavez M.D. slc/:06/17/2023 11:25:00 Ultrasound BI-RADS: 2 Benign BI-RADS CATEGORY: (2) - 2 Mammogram [id number] 1 year screening LATERALITY: (B)
== END 2023-06-17 10:33 | disposition home or self-care (01) ==
LOC: DI 10:32
PROVIDERS: ATTEND Physician Assistant Medical
DX: R92.8 Other abnormal and inconclusive findings on diagnostic imaging of breast (principal); D24.1 Benign neoplasm of right breast

== ENCOUNTER 2023-06-29 14:51 | Emergency (ER) | payer OTHER ==
[2023-06-29 15:12] VITALS: BP 157/94; O2SAT 99
--- NOTE | 2023-06-29 19:42 | ED Physician Documentation ---
History of Present Illness - Stated complaint Stated Complaint: IRREGULAR HR,SOA,LT EYE VISION BLURRED - Chief complaint Chief Complaint: Cardiac - History obtained from History obtained from: Patient - History of Present Illness Timing: Today Pain level max: 0 Pain level now: 0 - Additonal information Additional information: 57-year-old female presents to the emergency department with 2 complaints, the first is palpitations intermittently since she had COVID several months ago. She states she has undergone extensive testing for this including laboratory testing and 2 cardiac monitors. She experienced the palpitations while wearing the monitor but no cause was found. She does not have any palpitations currently. No chest pain. No shortness of breath. She states that she also saw dark floaters in her left eye today. They move whenever she moves her eye and then settled to the bottom of her vision. No loss of vision. No blurred vision. No double vision. No headache. No other focal neurological deficits. Has not had similar symptoms previously. Not on blood thinners. No trauma. Review of Systems Constitutional: denies: Fever, Chills Skin: denies: Rash Musculoskeletal: denies: Neck pain, Back pain Neurologic: denies: Headache PD PAST MEDICAL HISTORY - Past Medical History Past Medical History: Yes Cardiovascular: Other Respiratory: None Endocrine/Autoimmune: None GI: None : None HEENT: None Psych: None Musculoskeletal: Osteoarthritis, Chronic back pain Derm: None - Present Medications Home Medications: Ambulatory Orders Medication Instructions Recorded Confirmed Cyclobenzaprine [Flexeril] 10 mg PO DAILY 12/04/20 07/05/22 Maxalt 12/04/20 Losartan [Cozaar] 50 mg PO DAILY 30 Days #30 tablet 07/05/22 - Allergies Allergies/Adverse Reactions: Allergies Allergy/AdvReac Type Severity Reaction Status Date / Time aspirin AdvReac Hives Verified 06/29/23 14:57 pamabrom [From Midol] AdvReac Unknown Verified 06/29/23 14:57 shellfish derived AdvReac Hives Verified 06/29/23 14:57 - Social History Does the pt smoke?: No Smoking Status: Never smoker Does the pt drink ETOH?: No Does the pt have substance abuse?: No - Immunizations Immunizations are current?: Yes - POLST Patient has POLST: No PD ED PE NORMAL - Vitals Vital signs reviewed: Yes - General General: Alert and oriented X 3, No acute distress - HEENT HEENT: PERRL, EOMI, Moist mucous membranes, Other (L eye - Normal funduscopic exam. Bedside ultrasound reveals debris in the posterior chamber of the eye, but no discrete retinal detachment.) - Neck Neck: Supple, no meningeal sign - Cardiac Cardiac: RRR, Strong equal pulses - Respiratory Respiratory: No respiratory distress, Clear bilaterally - Abdomen Abdomen: Soft, Non tender, Non distended - Derm Derm: Warm and dry - Neuro Neuro: Alert and oriented X 3 - Psych Psych: Normal mood, Normal affect Results - Vitals Vitals: Vital Signs - 24 hr 06/29/23 06/29/23 14:57 20:19 Temperature 36.8 C Heart Rate 82 71 Respiratory 16 21 Rate Blood Pressure 157/94 H O2 Saturation 99 99 Oxygen O2 Source Room air - EKG (time done) 1500 EKG releavant findings:: EKG personally interpreted by author of this note. Relevant findings are: Rate: Rate (enter#) (80) Rhythm: NSR [place]: Normal Intervals: Normal [place] QRS: Normal Ischemia: Normal ST segments PD Medical Decision Making - ED course Complexity details: considered differential, d/w patient ED course: 57-year-old female with palpitations, no palpitations currently. She has been worked up extensively for this. EKG is normal and no acute findings on monitoring coordinator. No indication for further workup for this in the emergency department. She also has floaters in the left eye. No evidence of retinal detachment. No visual changes. Her funduscopic exam is clear to the posterior aspect of the eye. Ultrasound does not show any acute abnormalities other than some mild debris in the posterior chamber. 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 Patient counseled regarding signs and symptoms for which I believe and urgent re-evaluation would be necessary. Patient with good understanding of and agreement to plan and is comfortable going home at this time This document was made in part using voice recognition software. While efforts are made to proofread this document, sound alike and grammatical errors may occur. Departure - Departure Disposition: Home, Self Care Clinical Impression: Palpitations Floaters in visual field Qualifiers: Laterality: left Qualified Code(s): H43.392 - Other vitreous opacities, left eye Condition: Good Instructions: Flashes and Floaters Follow-Up: Mague Padgett PA-C [Primary Care Provider] - Chris James MD [Provider Admit Priv/Credential] - Comments: Your EKG is normal today. You do not have any arrhythmias on telemetry. It appears that you have been worked up extensively for your palpitations. You are having floaters in your left eye, these are often harmless, but you will need to be followed up by ophthalmology for further evaluation and to ensure that there is no structural issues with your eye. I do not see any retinal detachment tonight. Please return if you worsen. Please call your eye doctor tomorrow. Forms: PCP List Discharge Date/Time: 06/29/23 20:20
== END 2023-06-29 20:20 | disposition home or self-care (01) ==
LOC: ED 14:51
DX: R00.2 Palpitations (principal); H43.392 Other vitreous opacities, left eye; Z79.899 Other long term (current) drug therapy
CPT/HCPCS: 36415; 93005; 99283

== ENCOUNTER 2023-07-15 13:24 | Outpatient (CLI) | payer OTHER ==
--- NOTE | 2023-07-15 21:04 | MRI Report ---
PROCEDURE: Foot LT WO INDICATIONS: FOOT PAIN TECHNIQUE: Noncontrast sagittal T1 spin echo and T2 fast spin echo with fat saturation, long-axis T1 spin echo a nd T2 fast spin echo with fat saturation, short-axis proton density fast spin echo and T2 fast spin e cho with fat saturation through the forefoot. COMPARISON: Left foot radiographs 05/06/2023. FINDINGS: Image quality: Excellent. Bones and joints: No bone marrow contusions or metatarsal stress fractures. Minimal degenerative elizabeth nges are seen at the 1st metatarsophalangeal joint and metatarsal sesamoid articulations. Sesamoids a re normally aligned. No intraosseous lesions. Soft tissues: Soft tissue edema is seen surrounding the plantar aponeurosis at the mid foot and inclu ded hindfoot. No focal fascial tearing is seen. No mass effect labrum identified. The visualized plan tar foot muscles demonstrate normal signal and bulk. Visualized flexor and extensor tendons appear i ntact, without tenosynovitis. No soft tissue ganglion cysts or bursal fluid collections. Sagittal i mages demonstrate no evidence for plantar plate tears. IMPRESSION: 1.Soft tissue edema surrounding the central band of the plantar fascia at the midfoot and hindfoot, s uspicious for acute plantar fasciitis. No focal fascial tearing is seen. 2.Minimal 1st metatarsophalangeal and metatarsal-sesamoid osteoarthrosis. Reviewed by: Angel Nickerson MD on 07/15/2023 9:02 PM PST Approved by: Angel Nickerson MD on 07/15/2023 9:02 PM PST Station ID: [id number]
== END 2023-07-15 13:25 | disposition home or self-care (01) ==
LOC: DI 13:24
PROVIDERS: ATTEND Podiatrist
DX: R93.6 Abnormal findings on diagnostic imaging of limbs (principal); R93.89 Abnormal findings on diagnostic imaging of other specified body structures; M19.072 Primary osteoarthritis, left ankle and foot

== ENCOUNTER 2023-11-11 08:35 | Outpatient (CLI) | payer OTHER ==
[2023-11-11 11:50] LABS: EOSINOPHILS # (AUTO) 0.1 10^3/uL (0.0-0.7); EOSINOPHILS % (AUTO) 1.9 %; HCT - HEMATOCRIT 42.1 % (37.0-47.0); HGB - HEMOGLOBIN 13.3 g/dL (12.0-16.0); LYMPHOCYTES # (AUTO) 1.5 10^3/uL (1.5-3.5); LYMPHOCYTES % (AUTO) 34.6 %; MEAN CORPUSCULAR HEMOGLOBIN 29.2 pg (27.0-31.0); MEAN CORPUSCULAR HGB CONC 31.6 g/dL (32.0-36.0); MEAN CORPUSCULAR VOLUME 92.3 fL (81.0-99.0); MEAN PLATELET VOLUME 9.3 fL (7.9-10.8); MONOCYTES # (AUTO) 0.3 10^3/uL (0.0-1.0); MONOCYTES % (AUTO) 6.4 %; NEUTROPHILS # (AUTO) 2.3 10^3/uL (1.5-6.6); NEUTROPHILS % (AUTO) 55.9 %; PLT - PLATELET COUNT 342 10^3/uL (130-450); RED BLOOD COUNT 4.56 10^6/uL (4.20-5.40); RED CELL DISTRIBUTION WIDTH 12.7 % (12.0-15.0); WHITE BLOOD COUNT 4.2 x10^3/uL (4.8-10.8)
[2023-11-11 12:07] LABS: ALBUMIN 4.6 g/dL (3.2-5.5); ALBUMIN/GLOBULIN RATIO 1.4 (1.0-2.2); ALKALINE PHOSPHATASE 97 IU/L (42-121); ALT ALANINE AMINOTRANSFERASE 33 IU/L (10-60); AST ASPARTATE AMINOTRANSFERASE 23 IU/L (10-42); BILIRUBIN,TOTAL 0.5 mg/dL (0.2-1.0); BUN - BLOOD UREA NITROGEN 18 mg/dL (6-20); CALCIUM 9.7 mg/dL (8.5-10.3); CARBON DIOXIDE - CO2 29 mmol/L (21-32); CHLORIDE 105 mmol/L (101-111); CHOL/HDL RATIO 2.6 (<4.4); CHOLESTEROL 201 mg/dL; CREATININE 0.8 mg/dL (0.6-1.3); GFR - MDRD 73 (>89); GLUCOSE 114 mg/dL (74-104); HDL CHOLESTEROL 77 mg/dL; LDL CHOLESTEROL,CALCULATED 105 mg/dL; LDL/HDL RATIO 1.4 (<4.4); SODIUM 139 mmol/L (135-145); TRIGLYCERIDES 96 mg/dL (48-352); VLDL CHOLESTEROL 19 mg/dL
[2023-11-11 12:19] LABS: THYROID STIMULATING HORMONE 0.95 uIU/mL (0.34-5.60)
[2023-11-11 12:26] LABS: FERRITIN 146.3 ng/mL (11.0-306.8)
== END 2023-11-11 08:36 | disposition home or self-care (01) ==
LOC: LAB.N 08:35
PROVIDERS: ATTEND Physician Assistant Medical
DX: Z00.00 Encounter for general adult medical examination without abnormal findings (principal); R53.83 Other fatigue
CPT/HCPCS: 36415; 80053; 80061; 82306; 82607; 82728; 83721; 84443; 85025

== ENCOUNTER 2023-12-23 13:10 | Outpatient (CLI) | payer OTHER ==
--- NOTE | 2023-12-24 10:46 | DEXA Report ---
PROCEDURE: Dexa Spine and/or Hip INDICATIONS: POST MENOPAUSAL TECHNIQUE: Dual energy x-ray absorptiometry (DXA) was performed on a [employer] System. Regions measur ed are the AP Spine, femoral neck, and if needed forearm. COMPARISON: None FINDINGS: Lumbar Spine: Bone Mineral Density: 0.783 g/cm/cm,T score: -3.3. Left Femoral Neck: Bone Mineral Density: 0.714 g/cm/cm, T score: -2.3. Left Hip: Bone Mineral Density: 0.849 g/cm/cm,T score: -1.3. FRAX risk factors: None given. (T score greater or equal to -1.0: NORMAL) (T score from -1.1 to -2.4: OSTEOPENIA) (T score less than or equal to -2.5 to: OSTEOPOROSIS) Impression: By WHO criteria, this patient has osteoporosis. Patients with diagnosis of osteoporosis or osteopenia should have regular bone mineral density assess ment. For those eligible for Medicare, routine testing is allowed once every 2 years. Testing frequ ency can be increased for patients who have rapidly progressing disease or for those who are receivin g medical therapy to restore bone mass. Reviewed by: Rakesh Mahajan MD on 12/24/2023 10:44 AM PDT Approved by: Rakesh Mahajan MD on 12/24/2023 10:44 AM PDT Station ID: [id number]
== END 2023-12-23 13:11 | disposition home or self-care (01) ==
LOC: DI 13:10
PROVIDERS: ATTEND Physician Assistant Medical
DX: M81.0 Age-related osteoporosis without current pathological fracture (principal); Z78.0 Asymptomatic menopausal state